=== PATIENT | female | born 1955 | race Caucasian/White ===

== ENCOUNTER → 2023-07-17 10:11 | Outpatient (REF) | payer MEDICARE, OTHER, SELFPAY | LOC: DHCBC HW 10:11 | PROVIDERS: ATTENDING PHYSICIAN Internal Medicine Cardiovascular Disease; FAMILY PHYSICIAN Internal Medicine | DX: R00.2 Palpitations (principal); I10 Essential (primary) hypertension | CPT/HCPCS: 93306 ==

== ENCOUNTER → 2023-07-26 08:59 | Outpatient (REF) | payer MEDICARE, OTHER, SELFPAY ==
[2023-07-26 09:44] LABS: ALT (SGPT) 18 U/L (0-35); AST (SGOT) 27 U/L (14-36); Albumin 4.6 g/dl (3.5-5.0); Alkaline Phosphatase 126 U/L (38-126); Blood Urea Nitrogen 12 mg/dl (7-17); Calcium 9.9 mg/dl (8.4-10.2); Carbon Dioxide 28 mmol/L (22-30); Chloride 104 mmol/L (98-107); Glucose 93 mg/dl (70-99); Potassium 4.1 mmol/L (3.5-5.1); Sodium 137 mmol/L (135-145); Total Bilirubin 1.2 mg/dl (0.2-1.3); Total Protein 7.2 g/dl (6.3-8.2); eGFR > 60.00
== END ==
LOC: REG 08:59
PROVIDERS: ATTENDING PHYSICIAN Nurse Practitioner
DX: K59.01 Slow transit constipation (principal)
CPT/HCPCS: 36415; 80053

== ENCOUNTER → 2023-07-28 09:34 | Outpatient (REF) | payer MEDICARE, OTHER, SELFPAY | LOC: HWRAD 09:34 | PROVIDERS: ATTENDING PHYSICIAN Nurse Practitioner | DX: K59.01 Slow transit constipation (principal) | CPT/HCPCS: 74176 ==

== ENCOUNTER → 2023-11-05 17:39 | Outpatient (REF) | payer MEDICARE, OTHER, SELFPAY | LOC: WDC 17:39 | PROVIDERS: ATTENDING PHYSICIAN Obstetrics & Gynecology Gynecology; FAMILY PHYSICIAN Internal Medicine | DX: Z12.31 Encounter for screening mammogram for malignant neoplasm of breast (principal); Z01.419 Encounter for gynecological examination (general) (routine) without abnormal findings | CPT/HCPCS: 77063; 77067 ==

== ENCOUNTER → 2024-03-31 07:31 | Outpatient (REF) | payer MEDICARE, OTHER, SELFPAY | LOC: RAD 07:31 | PROVIDERS: ATTENDING PHYSICIAN Internal Medicine | DX: I65.29 Occlusion and stenosis of unspecified carotid artery (principal); Z82.49 Family history of ischemic heart disease and other diseases of the circulatory system; R09.89 Other specified symptoms and signs involving the circulatory and respiratory systems; I65.23 Occlusion and stenosis of bilateral carotid arteries; I67.2 Cerebral atherosclerosis | CPT/HCPCS: 75571; 93880 ==

== ENCOUNTER → 2025-02-22 16:26 | Outpatient (REF) | payer MEDICARE, OTHER, SELFPAY | LOC: RAD 16:26 | PROVIDERS: ATTENDING PHYSICIAN Surgery; FAMILY PHYSICIAN Internal Medicine | DX: R31.29 Other microscopic hematuria (principal) | CPT/HCPCS: 74178; Q9967 ==

== ENCOUNTER → 2025-03-04 14:14 | Outpatient (REF) | payer MEDICARE, OTHER, SELFPAY | LOC: WDC 14:14 | PROVIDERS: ATTENDING PHYSICIAN Internal Medicine | DX: Z12.31 Encounter for screening mammogram for malignant neoplasm of breast (principal) | CPT/HCPCS: 77063; 77067 ==

== ENCOUNTER → 2025-03-26 09:52 | Outpatient (REF) | payer MEDICARE, OTHER, SELFPAY ==
[2025-03-26 11:08] LABS: Urine Character Clear (Clear)
[2025-03-26 11:45] LABS: Urine Red Blood Cell 0-2 /HPF (0-2); Urine White Cell 0-2 /HPF (0-5)
== END ==
LOC: REG 09:52
PROVIDERS: ATTENDING PHYSICIAN Surgery; FAMILY PHYSICIAN Internal Medicine
DX: N39.0 Urinary tract infection, site not specified (principal)
CPT/HCPCS: 81003; 81015; 87077; 87086; 87147

== ENCOUNTER 2025-03-30 09:07 | Emergency (ER) | payer MEDICARE, OTHER, SELFPAY ==
[2025-03-30 09:10] VITALS: BP 171/85
--- NOTE | 2025-03-30 09:27 | ED.GENMED ---
History of Present Illness
General
Chief Complaint: DVT/Possible Blood Clot
Source: patient
Exam Limitations: none
Time Seen by Provider: 03/30/25 09:10
Nursing documentation reviewed up to this point in time: agreed with
History of Present Illness
History of Present Illness:
Patient is a 70-year-old female who presents to the emergency department with areas of redness/tenderness on left thigh. Patient is 3 weeks s/p left total hip replacement with Dr. Arroyo at [facility]. She states that on Friday afternoon
she noticed 2 new areas of redness on her upper thigh which were tender to palpation. She denies any numbness/tingling or significant swelling in left lower extremity. She denies any fever, chills. No chest pain or shortness of breath.
She was seen by her home PT where it was recommended that she contact her surgeon. She was unable to get in touch with Dr. Arroyo yesterday and therefore came to the emergency department for evaluation to rule out a blood clot.
Patient has been taking a baby aspirin twice daily since surgery.
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 She is concerned that the steroids may have led to a blood clot. Patient states that many years ago she had a history
of phlebitis following childbirth.
Past History
Past History
ED Past Medical History: Asthma, HTN, Hypercholesterolemia and Other (Lyme disease)
ED Past Surgical History: Gynecological (Uterine ablation)
Social History
Tobacco: Non-smoker
Alcohol: None
Personal:
Living: with family
Family History
Family History: Negative Diabetes, Hypertension, Early CAD, Asthma or Cancer
Review of Systems
Review of Systems
Allergies reviewed?: Yes
All Other Systems: ROS reviewed and negative except as documented in HPI and ROS
Phy Exam
Physical Exam
Physical Exam:
Vitals: Tachycardic on arrival, otherwise stable vital signs. Afebrile
General: Patient is very well appearing, no acute distress
Skin: Well-healing surgical incision of left hip without surrounding erythema, drainage, or warmth. There are 2 circular areas on the left lateral thigh which are erythematous and mildly tender to palpation. No palpable cord. No associated
fluctuance or induration.
Head: Normocephalic, atraumatic
Throat: Protecting airway
Neck: Normal ROM, no cervical spine tenderness
Cardiac: Tachycardic, normal rhythm
Pulm: No apparent respiratory distress
Abdomen: Nondistended
Extremities: Well-healing surgical scar to left hip as above. No pitting edema of left lower extremity. 2+ palpable left DP and PT pulse with normal sensation. Negative Homans' sign
Neuro: Grossly intact
Psychiatric: Normal affect.
Course
Orders/Labs/Results
Orders:
Orders
03/30/25 09:25
US Periph Venous LOWER Ext LT Urgent
Comment: recent hip replacement
Reason For Exam: erythema/tenderness left lateral thigh
Vital Signs
Pulse: 81
Initial and Last Documented VS:
Initial Vital Signs
Temp Pulse Resp Pulse Ox
98.0 F 112 18 100
03/30/25 09:09 03/30/25 09:09 03/30/25 09:09 03/30/25 09:09
Last Documented Vital Signs
Temp Pulse Resp BP Pulse Ox
98.0 F 78 18 133/63 99
03/30/25 09:09 03/30/25 11:38 03/30/25 11:38 03/30/25 11:38 03/30/25 11:38
MDM/Problems Addressed
Differential Diagnosis Includes:
Not limited to: Normal postoperative course, phlebitis, DVT, bug bite, cellulitis, etc.
MDM/Problems Addressed:
70-year-old female 3 weeks s/p left total hip replacement presenting with areas of tenderness and erythema of left lateral thigh. Pain worse with palpation. She has been able to weight-bear. No significant worsening in lower extremity swelling or
numbness/tingling. No recent falls, trauma, or known bites. She did recently take a Medrol Dosepak for exacerbation of TMJ. Patient has been taking baby aspirin twice daily since surgery.
Mildly tachycardic on arrival, otherwise with stable vital signs. Patient is afebrile. Physical exam as above. She appears well and in no distress. She is ambulatory with steady gait. There is a very well-appearing incisional scar of left hip
without evidence of surrounding cellulitis. She does have 2 localized areas of erythema and tenderness of left proximal lateral thigh. No pain, swelling of left calf. Left lower extremity is neurovascularly intact.
No evidence of surgical site infection. Will check left lower extremity ultrasound to rule out DVT.
Update: US reveals no evidence of DVT however does make note of soft tissue collection in area of concern, possibly seroma vs hematoma without internal bloodflow. On exam, there is no fluctuance, warmth, or evidence of abscess. Do not feel abx
indicated at this time. She is comfortable appearing and her vital signs have normalzied. Feel appropraote for discharge home with continued f/u with orhtopedic surgeon. Strict return precautions discussed.
Chronic conditions affecting care:
Recent left total hip replacement
Acute Exacerbation and/or Progression of Chronic Illness:
N/A
*Radiology
Radiology exam reviewed: radiology read reviewed
*Pulse Oximetry
SaO2: 100
Oxygen Mode of Delivery: Room air
Patient hypoxic: no
*EKG
Interpreted by ED Provider?: NA
*Population Health Manager Interpretation
Rate: Population Health Manager- N/A
*Critical Care Note
Total Time (30-74mins, 75-104mins- exclusive of procedures): Not Applicable
ED Attending Note
-
Portions of this chart may have been created with voice recognition software.� Occasional wrong word or��sound alike� substitutions may have occurred due to the inherent limitations of voice recognition software.
Discharge Plan
Departure
Patient Disposition: Home (Routine Discharge)
Date of Disposition: 03/30/25
Time of Disposition: 11:33
Patient with high blood pressure during this ER visit?: Yes
Condition: Good
Discharge Problem:
Pain of left lateral upper thigh, Hematoma
Instructions: BLOOD PRESSURE
Prescriptions:
No Action
ondansetron 4 MG tablet,disintegrating
4 mg PO Q8HPRN PRN (Reason: Nausea/vomiting) Qty: 10 0RF
ondansetron 4 mg tablet,disintegrating
4 mg PO TIDPRN PRN (Reason: nausea/vomiting) Qty: 14 0RF
Referrals:
Holly Ramirez DO [Family Provider, Internal Medicine]
Activity Restrictions/Additional Instructions:
RETURN TO THE EMERGENCY DEPARTMENT WITH ANY FEVER, WORSENING REDNESS/PAIN/SWELLING/WARMTH OF LEFT THIGH, SWELLING IN LEFT LOWER EXTREMITY OR NUMBNESS/TINGLING, WORSENING IN CURRENT SYMPTOMS, OR ANY OTHER CONCERN
- As discussed, the ultrasound showed no evidence of a blood clot in your left lower extremity however did note a soft tissue collection in your left thigh. This is likely either a postoperative hematoma or seroma however please continue to
monitor area closely to ensure no evidence of infection develops
- You can apply warm compresses to the area. Take Tylenol as needed for pain. It is important to continue aspirin as directed. Continue to elevate leg as directed.
- Follow-up with your orthopedic surgeon for further evaluation/management to ensure symptoms resolved
Monitor your symptoms closely return to the emergency department with any acute worsening/new symptoms or any other concerns
Interventions
Interventions:
*Nursing Disposition Last Done: 03/30/25 11:38
ED- Cardiac Assessment Last Done: 03/30/25 09:44
ED- Pulmonary Assessment Last Done: 03/30/25 09:44
ED-Peripheral Vascular Assessment Last Done: 03/30/25 09:44
ED-Skin Assessment Last Done: 03/30/25 09:44
Discharge Date and Time
Discharge Date/Time: 03/30/25 11:39
Print Language: ANGUILLAN
[2025-03-30 09:44] VITALS: BMI 24.2
[2025-03-30 11:38] VITALS: BP 133/63
== END 2025-03-30 11:39 | disposition home or self-care (01) ==
LOC: EMR 09:07
PROVIDERS: EMERGENCY PHYSICIAN Emergency Medicine; FAMILY PHYSICIAN Internal Medicine
DX: M79.652 Pain in left thigh (principal); L53.9 Erythematous condition, unspecified; E78.00 Pure hypercholesterolemia, unspecified; I10 Essential (primary) hypertension; J45.909 Unspecified asthma, uncomplicated; Z96.642 Presence of left artificial hip joint; Z79.82 Long term (current) use of aspirin; Z86.72 Personal history of thrombophlebitis
CPT/HCPCS: 99284; 93971

== ENCOUNTER 2025-03-31 21:54 | Emergency (ER) | payer MEDICARE, OTHER, SELFPAY ==
[2025-03-31 21:58] VITALS: BP 160/79
[2025-03-31 22:25] VITALS: BP 133/67; BMI 24.9
[2025-03-31 22:55] LABS: Urine Character Clear (Clear)
[2025-03-31 22:56] LABS: Hematocrit 31.4 % (37.0-47.0); Hemoglobin 10.3 g/dL (12.0-16.0); Mean Corp Hgb Conc. 32.8 g/dL (33.0-37.0); Mean Corpuscular Volume 89.2 fL (81.0-99.0); Nucleated Red Blood Cells % 0 %; Platelet Count 443 10^3/uL (130-400); Red Cell Dist. Width 13.9 % (11.5-14.5)
[2025-03-31 23:00] VITALS: BP 131/58
[2025-03-31 23:06] LABS: INR 0.97; PT 13.4 Sec (11.4-14.6)
[2025-03-31 23:07] LABS: APTT 28.6 Sec (23.4-35.0)
[2025-03-31 23:09] LABS: ALT (SGPT) 15 U/L (0-35); AST (SGOT) 17 U/L (14-36); Albumin 3.6 g/dl (3.5-5.0); Alkaline Phosphatase 121 U/L (38-126); Blood Urea Nitrogen 18 mg/dl (7-17); Calcium 9.2 mg/dl (8.4-10.2); Carbon Dioxide 28 mmol/L (22-30); Chloride 95 mmol/L (98-107); Estimated Creatinine Clearance 58 ml/min; Glucose 104 mg/dl (70-99); Lipase 161 U/L (23-300); Potassium 4.1 mmol/L (3.5-5.1); Sodium 127 mmol/L (135-145); Total Protein 6.2 g/dl (6.3-8.2); eGFR > 60.00
[2025-03-31 23:10] LABS: Urine Squamous Cell 21-25 /LPF (Few)
[2025-03-31] MEDS: NSS 1000 IV (23:30)
--- NOTE | 2025-04-01 00:13 | ED.GENMED ---
History of Present Illness
General
Chief Complaint: Fatigue
Source: patient and family
Exam Limitations: none
Time Seen by Provider: 03/31/25 22:23
Nursing documentation reviewed up to this point in time: agreed with
History of Present Illness
History of Present Illness:
Note:
CHIEF COMPLAINT(S)
Blood pressure elevation and post-surgical site pain.
HISTORY OF PRESENT ILLNESS
The patient is a 70-year-old female who is three weeks post-operative following a total hip replacement on the left side. She reports the emergence of two lesions resembling mosquito bites near the surgical site last Friday, which were not itchy but
progressively more painful. The patient consults with her physical therapist, who advised her to have it assessed by a doctor due to its unusual appearance. Despite attempts to send a photo of the lesions for evaluation, there was no follow-up from
the surgical team.
Yesterday, concerned about a potential thrombosis, the patient sought emergency care. Evaluation at that time led to a diagnosis of two hematomas, and she was advised to rest, elevate the limb, and apply heat. However, her pain continues to
intensify.
The patient monitored her blood pressure, which was reading 120/57 mmHg when checked by her physical therapist. Notably, her blood pressure spiked to 185/90 mmHg, prompting todays visit.
Past issues with hematuria were noted, with a previous urine analysis in January revealing microscopic blood. There was subsequent concern when she observed visible blood on wiping. A specialist determined the blood was from the urinary tract, not
vaginally sourced. She was reassured after recent tests showed no blood presently detectable in the urine. Today�s lab work will be assessed for any urinary tract pathology.
PAST MEDICAL AND SURIGICAL HISTORY
Status post left total hip replacement three weeks ago.
ADDITIONAL HISTORY OBTAINED FROM SOURCES OTHER THAN THE PATIENT
The patients physical therapist observed the skin lesions during a home visit and advised her to seek further evaluation.
CHRONIC MEDICAL CONDITIONS SIGNIFICANTLY AFFECTING CARE
History of elevated blood pressure.
SOCIAL DETERMINANTS AFFECTING HEALTH
The patient reported logistical issues with technology and health portals due to the complexity of managing her daughters extensive medical needs, impacting communication with her provider.
MEDICATIONS
Potassium; dosage includes one pill at night and two in the morning.
PHYSICAL EXAM
General: Alert, no acute distress.
Skin: Warm, dry, with noted tenderness near the surgical area on the left hip.
Head: Normocephalic, atraumatic.
Neck: Supple, trachea midline.
Eyes, Ears, Nose, Mouth, and Throat: Oral mucosa moist.
Cardiovascular: Normal peripheral perfusion, No edema.
Respiratory: Respirations are non-labored.
Gastrointestinal: Abdomen nondistended.
Back: Normal range of motion, Normal alignment.
Musculoskeletal: Normal range of motion, normal strength, except limited by pain near surgical site.
Neurological: Alert and oriented to person, place, time, and situation, No focal neurological deficit observed.
Psychiatric: Cooperative, appropriate mood & affect.
PROBLEM LIST
Acute:
- Post-operative hematomas with increasing pain at the surgical site.
- Blood pressure elevation.
PLAN
- Evaluate current urine specimen and blood tests for microscopic hematuria or infection.
- Follow-up with orthopedic surgeon as planned on Friday for ongoing surgical evaluation and management.
- Discuss blood pressure management, considering recent elevation and adjust treatment if necessary.
DIFFERENTIAL DIAGNOSIS
The Differential Diagnosis includes, in no particular order and is not limited to:
1. Hematomas secondary to surgery.
2. Post-surgical infection.
3. Deep vein thrombosis.
4. Blood pressure fluctuation due to post-operative stress or medication effects.
5. Urinary tract infection or persistent hematuria.
6. Thrombophlebitis secondary to hematomas.
7. Blood clot formation.
8. Soft tissue infection.
9. Surgical site complication � suture reaction or foreign body.
10. Hemorrhagic complication relating to post-surgical healing.
Disposition:
SUMMARY OF ENCOUNTER
A 70-year-old female presented with weakness. Evaluation revealed slightly elevated sodium levels. She was administered fluids in the emergency department but chose not to wait for further fluids and re-evaluation. The patient also had a red spot on
her lateral thigh, which had been assessed the previous evening in the emergency department with no change in appearance.
DISPOSITION
Discharge with follow-up with her family doctor.
PLAN
Follow up with primary care physician for ongoing assessment of hypernatremia and any further management of the site on her thigh.
MEDICAL DECISION MAKING
- Complexity of Data Reviewed: Chronic conditions affecting care include a history of elevated blood pressure. Consideration of the following differential diagnoses: hematomas secondary to surgery, postsurgical infection, deep vein thrombosis, blood
pressure fluctuation, urinary tract infection or persistent hematuria, thrombophlebitis secondary to hematomas, blood clot formation, soft tissue infection, surgical site complication, and hemorrhagic complication relating to post-surgical healing.
- Data:
Category 2
Clinical information was obtained from an independent historian: the patients physical therapist advised evaluation of the skin lesions.
-Risk: Consideration of Admission/Observation: Escalation of care including admission/observation was considered given the complexity and risk of the patients presenting complaint, exam findings, and/or underlying comorbidities. However, ultimately
the patient was deemed safe for outpatient management with close follow-up. Reasoning: Work-up did not reveal any acute life/organ threatening processes, patients symptoms were well controlled, reexamination was reassuring, patient was agreeable
with discharge, and reliable for follow-up.
Care significantly affected by Social Determinants of Health: The patient reported challenges with technology and health portals impacting communication with her provider.
DIAGNOSIS
Hypernatremia (ICD-10: E87.0)
Past History
Past History
ED Past Medical History: Asthma, HTN, Hypercholesterolemia and Other (Lyme disease)
ED Past Surgical History: Gynecological (Uterine ablation)
Social History
Tobacco: Non-smoker
Alcohol: None
Personal:
Living: with family
Family History
Family History: Negative Diabetes, Hypertension, Early CAD, Asthma or Cancer
Phy Exam
Physical Exam
Physical Exam:
.
Course
Orders/Labs/Results
Orders:
Orders
03/31/25 22:48
Complete Blood Count/With Diff Urgent
Comprehensive Metabolic Panel Urgent
Lipase Urgent
PTT Urgent
Prothrombin Time Urgent
Urinalysis Reflex To Culture Urgent
Date Specimen was Collected: 03/31/25
Time Specimen was Collected: 22:41
Urine Microscopic Reflex Cult Urgent
Urine Culture Urgent
SHAHRIAR Source: U
Specimen Description:
Date Specimen was Collected: 03/31/25
Time Specimen was Collected: 22:41
03/31/25 23:12
0.9% Sodium Chloride 1000 ml [Nss] 1,000 ml IV BOLUS
Abnormal Lab Results
03/31/25
22:48
RBC 3.52 L 10^6/uL
(4.20-5.40)
Hgb 10.3 L g/dL
(12.0-16.0)
Hct 31.4 L %
(37.0-47.0)
MCHC 32.8 L g/dL
(33.0-37.0)
Plt Count 443 H 10^3/uL
(130-400)
Abs Immat Gran (auto) 0.1 H 10^3/uL
(0-0.05)
Absolute Monos (auto) 0.9 H 10^3/uL
(0.1-0.6)
Immature Gran % 1.5 H %
(0-0.5)
Lymphocytes % 18.8 L %
(20.5-51.1)
Monocytes % 10.5 H %
(1.7-9.3)
Sodium 127 L mmol/L
(135-145)
Chloride 95 L mmol/L
(98-107)
BUN 18 H mg/dl
(7-17)
Glucose 104 H mg/dl
(70-99)
Total Protein 6.2 L g/dl
(6.3-8.2)
Ur Occult Blood Reflex 3+ A
(Negative)
Leukocyte Esterase Rfl 1+ A
(Negative)
Urine RBC 3-6 A /HPF
(0-2)
Urine Bacteria (Reflex) Few A
(Negative)
03/31/25 22:48
03/31/25 22:48
Vital Signs
Initial and Last Documented VS:
Initial Vital Signs
Pulse Resp BP Pulse Ox
87 20 160/79 99
03/31/25 21:58 03/31/25 21:58 03/31/25 21:58 03/31/25 21:58
Last Documented Vital Signs
Temp Pulse Resp BP Pulse Ox
98.1 F 87 20 131/58 96
03/31/25 22:09 03/31/25 21:58 03/31/25 21:58 03/31/25 23:00 03/31/25 23:30
*Pulse Oximetry
SaO2: 96
Oxygen Mode of Delivery: Room air
Patient hypoxic: no
*Critical Care Note
Total Time (30-74mins, 75-104mins- exclusive of procedures): Not Applicable
ED Attending Note
-
Portions of this chart may have been created with voice recognition software.� Occasional wrong word or��sound alike� substitutions may have occurred due to the inherent limitations of voice recognition software.
Discharge Plan
Departure
Patient Disposition: Home (Routine Discharge)
Date of Disposition: 04/01/25
Time of Disposition: 00:14
Patient with high blood pressure during this ER visit?: Yes
Condition: Good
Discharge Problem:
Acute hyponatremia, Episode of generalized weakness, Hematuria
Instructions: Fatigue (DC), Hyponatremia, Dehydration in adults - ED (DC), Blood in the urine (hematuria) in adults, BLOOD PRESSURE
Prescriptions:
No Action
ondansetron 4 MG tablet,disintegrating
4 mg PO Q8HPRN PRN (Reason: Nausea/vomiting) Qty: 10 0RF
ondansetron 4 mg tablet,disintegrating
4 mg PO TIDPRN PRN (Reason: nausea/vomiting) Qty: 14 0RF
Referrals:
Holly Ramirez DO [Family Provider, Internal Medicine]
Amor Matthew MD [Active, Urology] - Call in 1-3 days for appt
Activity Restrictions/Additional Instructions:
Please follow-up with your family doctor to have your blood work, specifically sodium rechecked
Thank You for choosing [facility].
It was a pleasure meeting you and taking part in your care. We hope for your continued healing and wellness.
Please read discharge instructions in their entirety. However, they are for general education and may not describe your exact diagnosis at discharge. Information on your ER visit and medical conditions were discussed with you along with appropriate
follow up information...
If indicated, please take your medications as instructed and indicated on discharge paperwork.
Please schedule a follow up appointment as directed. Call to schedule an appointment
Please return to the emergency department with ANY change in, persisting, or worsening of symptoms. If any of your symptoms do not improve, or persist, or become more severe within 6-12 hours, please return to the emergency department for further
care.
Please return to the emergency department if you develop a headache, neck pain/stiffness, fever greater than 100.4F, chest pain, shortness of breath, persistent nausea, vomiting, slurred speech, difficulty walking, numbness/tingling, weakness, signs
of infection or any other symptoms that are worrisome to you.
If you have any questions or concerns please do not hesitate to call the Hospital at .
Interventions
Interventions:
*Risk Screen - Suicide Last Done: 03/31/25 22:52
*General Assessment Last Done: 03/31/25 21:58
*Neglect/Abuse Screening Last Done: 03/31/25 22:27
*ED- Fall Risk Assessment Last Done: 03/31/25 22:27
*ED COVID-19 Vaccine History Last Done: 03/31/25 22:27
*ED Influenza Vaccine History Last Done: 03/31/25 22:27
Discharge Date and Time
Print Language: LITHUANIAN
== END 2025-04-01 00:36 | disposition home or self-care (01) ==
LOC: EMR 21:54
PROVIDERS: EMERGENCY PHYSICIAN Student in an Organized Health Care Education/Training Program; FAMILY PHYSICIAN Internal Medicine
DX: E87.1 Hypo-osmolality and hyponatremia (principal); R53.1 Weakness; R31.9 Hematuria, unspecified; E78.00 Pure hypercholesterolemia, unspecified; I10 Essential (primary) hypertension; J45.909 Unspecified asthma, uncomplicated; Z96.642 Presence of left artificial hip joint
CPT/HCPCS: 96360; 99284; 80053; 81003; 81015; 83690; 85025; 85610; 85730; 87086